=== PATIENT | male | born 2000 | race Two or more races ===

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

== ENCOUNTER 2021-02-09 20:58 | Emergency (ER) | payer MEDICAID ==
[~2021-02-09] VITALS: Ht 188 cm; Wt 90.0 kg
[~2021-02-09 20:58] MED LIST: ESCI-8 PO; TRAZ-251 PO
[2021-02-09 21:31] VITALS: BP 119/64
[2021-02-09] MEDS ORDERED: dexamethasone 4mg tablet PO ONE (22:10)
[2021-02-09] MEDS ORDERED: ibuprofen tablet 400 MG TABLET PO ONE (22:15)
[2021-02-09] MEDS ORDERED: acetaminophen 325mg tablet PO ONE (22:15)
[2021-02-09] MEDS ORDERED: PRED20TA PO (22:16)
== END 2021-02-09 22:39 | disposition home or self-care (01) ==
LOC: ER 20:58
DX: J02.9 Acute pharyngitis, unspecified (principal); R50.9 Fever, unspecified; H92.02 Otalgia, left ear; F32.9 Major depressive disorder, single episode, unspecified; Z90.89 Acquired absence of other organs; Z98.890 Other specified postprocedural states; Z79.899 Other long term (current) drug therapy
CPT/HCPCS: 99284

== ENCOUNTER 2022-02-07 21:17 | Emergency (ER) | payer MEDICAID ==
[~2022-02-07] VITALS: Ht 188 cm; Wt 93.2 kg
[2022-02-07 21:49] VITALS: BP 118/70
== END 2022-02-07 23:13 | disposition home or self-care (01) ==
LOC: ER 21:18
DX: S93.491A Sprain of other ligament of right ankle, initial encounter (principal); F32.A Depression, unspecified; W17.89XA Other fall from one level to another, initial encounter; Y93.89 Activity, other specified; Y92.89 Other specified places as the place of occurrence of the external cause; Y99.8 Other external cause status; Z79.899 Other long term (current) drug therapy
CPT/HCPCS: 73610; 99283

== ENCOUNTER 2022-03-24 17:51 | Emergency (ER) | payer MEDICAID ==
[~2022-03-24] VITALS: Ht 188 cm; Wt 93.2 kg
[2022-03-24 17:55] VITALS: BP 130/83
[2022-03-24] MEDS ORDERED: CEPH250T PO (18:24)
[2022-03-24] MEDS ORDERED: HYDR28CR14 TOP (18:24)
== END 2022-03-24 18:36 | disposition home or self-care (01) ==
LOC: ER 17:51
DX: T23.072D Burn of unspecified degree of left wrist, subsequent encounter (principal); L03.114 Cellulitis of left upper limb; F32.A Depression, unspecified; Z79.899 Other long term (current) drug therapy
CPT/HCPCS: 99283

== ENCOUNTER 2022-04-20 22:07 | Emergency (ER) | payer MEDICAID ==
[~2022-04-20 22:07] MED LIST changes: +HYDR28CR14 TOP
== END 2022-04-20 22:19 | disposition left against medical advice (07) ==
LOC: ER 22:07
DX: R21 Rash and other nonspecific skin eruption (principal); Z53.21 Procedure and treatment not carried out due to patient leaving prior to being seen by health care provider

== ENCOUNTER 2022-09-03 21:58 | Emergency (ER) | payer MEDICAID ==
[~2022-09-03] VITALS: Ht 188 cm; Wt 91.8 kg
[2022-09-03 22:23] VITALS: BP 126/77
--- NOTE | 2022-09-03 23:43 | NUR ---
BOOTS PLACED ON PTS FOOT AND CRUTCHES GIVEN
== END 2022-09-03 23:46 | disposition home or self-care (01) ==
LOC: ER 22:00
DX: S93.401A Sprain of unspecified ligament of right ankle, initial encounter (principal); M25.561 Pain in right knee; M25.571 Pain in right ankle and joints of right foot; F32.A Depression, unspecified; Z90.89 Acquired absence of other organs; Z98.890 Other specified postprocedural states; Z79.899 Other long term (current) drug therapy; X50.1XXA Overexertion from prolonged static or awkward postures, initial encounter; Y93.66 Activity, soccer; Y92.89 Other specified places as the place of occurrence of the external cause; Y99.8 Other external cause status
CPT/HCPCS: 73610; 99283; L4360

== ENCOUNTER → 2024-01-02 | Outpatient (CLI) | payer MEDICAID | END | disposition home or self-care (01) | LOC: RAD 12:46 | PROVIDERS: ATTEND Nurse Practitioner | DX: R07.81 Pleurodynia (principal) | CPT/HCPCS: 71101 ==